=== PATIENT | female | born 1990 | race Caucasian/White ===

== ENCOUNTER 2017-02-07 23:07 | Emergency (ER) | payer MEDICAID, OTHER ==
[2017-02-07 23:19] VITALS: TEMP 97.9; BMI 31.8
--- NOTE | 2017-02-07 23:46 | ED PDOC ---
Arrival/HPI <Jacob Field - Last Filed: 02/08/17 01:11> - General Historian: Patient <Casey Reno - Last Filed: 02/08/17 02:10> - General Chief Complaint: Chest Pain Time Seen by Provider: 02/07/17 23:21 - History of Present Illness Narrative History of Present Illness (Text): 02/07/17 23:41 26 y/o female, pmh including asthma, chronic smoker, nkda, c/o rt. sided chest pain x 1 day with no fall or trauma. Pt. stated that she was at the gym today which she has been doing weight lifting, went home tonight and noticed to have the rt. anterior chest pain, aggravated by movement, been coughing for amado past 2 weeks as well, no numbness or tingling, no headache or night sweat, no rash, no dizziness, no change in vision, no other medical or psychological complaints. (Casey Reno) Past Medical History - Provider Review Nursing Documentation Reviewed: Yes - Past History Past History: No Previous - Tetanus Immunization Tetanus Immunization: Unknown - Pulmonary Hx Asthma: Yes - Psychiatric Hx Anxiety: Yes Hx Depression: No Hx Emotional Abuse: No Hx Physical Abuse: No Hx Substance Use: No - Past Surgical History Past Surgical History: No Previous - Suicidal Assessment Feels Threatened In Home Enviroment: No <Casey Reno - Last Filed: 02/08/17 02:10> Family/Social History - Physician Review Nursing Documentation Reviewed: Yes Family/Social History: Unknown Family HX Smoking Status: Light Smoker < 10 Cigarettes Daily Hx Alcohol Use: Yes Frequency of alcohol use: Socially Hx Substance Use: No Hx Substance Use Treatment: No <Casey Reno - Last Filed: 02/08/17 02:10> Allergies/Home Meds <Jacob Field - Last Filed: 02/08/17 01:11> <Casey Reno - Last Filed: 02/08/17 02:10> Allergies/Adverse Reactions: Allergies No Known Allergies Allergy (Verified 10/14/12 22:22) Review of Systems - Review of Systems Constitutional: absent: Fatigue, Fevers Eyes: absent: Vision Changes ENT: absent: Hearing Changes Respiratory: absent: SOB, Cough, Sputum Cardiovascular: Chest Pain. absent: Palpitations, Calf Pain Gastrointestinal: absent: Abdominal Pain, Nausea, Vomiting Musculoskeletal: Myalgias. absent: Arthralgias, Back Pain, Neck Pain, Joint Swelling Skin: absent: Rash, Pruritis, Skin Lesions, Laceration, Abscess, Ulcer, Cellulitis Neurological: absent: Headache, Dizziness, Focal Weakness, Gait Changes <Casey Reno - Last Filed: 02/08/17 02:10> Physical Exam Vital Signs Reviewed: Yes Temperature: Afebrile Blood Pressure: Normal Pulse: Regular Respiratory Rate: Normal Appearance: Positive for: Well-Appearing, Non-Toxic, Comfortable Pain Distress: Moderate Mental Status: Positive for: Alert and Oriented X 3 - Systems Exam Head: Present: Atraumatic, Normocephalic Pupils: Present: PERRL Extroacular Muscles: Present: EOMI Conjunctiva: Present: Normal Mouth: Present: Moist Mucous Membranes Neck: Present: Normal Range of Motion Respiratory/Chest: Present: Clear to Auscultation, Good Air Exchange, Tender to Palpation (+ttp on the rt. anterior pectoralis major muscle with the pain 100% reproducible, no rash. ). No: Respiratory Distress, Accessory Muscle Use, Wheezes, Decreased Breath Sounds, Rales, Retracting, Rhonchi, Tachypneic, Other Cardiovascular: Present: Regular Rate and Rhythm, Normal S1, S2. No: Murmurs Abdomen: Present: Normal Bowel Sounds. No: Tenderness, Distention, Peritoneal Signs, Rebound, Guarding Back: Present: Normal Inspection Upper Extremity: Present: Normal Inspection. No: Cyanosis, Edema Lower Extremity: Present: Normal Inspection. No: Edema Neurological: Present: GCS=15, Speech Normal, Motor Func Grossly Intact, Gait Normal, Memory Normal Skin: Present: Warm, Dry, Normal Color. No: Rashes Psychiatric: Present: Alert, Oriented x 3, Normal Insight, Normal Concentration <Casey Reno - Last Filed: 02/08/17 02:10> Vital Signs Temp Pulse Resp BP Pulse Ox 02/08/17 01:33 83 16 114/49 L 98 02/07/17 23:16 97.9 F 75 19 126/67 97 Medical Decision Making <Jacob Field - Last Filed: 02/08/17 01:11> - Lab Interpretations I have reviewed the lab results: Yes Interpretation: No clinic. lab abnormalty - EKG Interpretation Interpreted by ED Physician: Yes Type: 12 lead EKG Comparison: No previous EKG avail. <Casey Reno - Last Filed: 02/08/17 02:10> ED Course and Treatment: 02/07/17 23:49 -labs/thyroid panel -EKG -Chest x-ray -Toradol IM -observe and reassess 02/08/17 02:00 -EKG: NSR @ 62 BPM, no ST elevation or depression, T wave inversion noted on the lead III, no previous ekg available for comparison. -Chest x-ray show: rt. lower lobe infiltrate -Labs show no acute findings. -Thyroid profile within normal limit. -Levaquin 750mg po ordered. -I discussed the side effect of the fluoroquinolones with the patient including achilles tendon rupture which she is awared and agreed to take this medication. -Pt. is vitally stable, pain resolved with the IV toradol. -Discharge home with levaquin, promethazine dm, motrin, stay hydrated, bed rest , no gym or exercise for 7 days plus stay hydrated, stop smoking, follow up with your own pmd within 2 days, return to the ER for any new or worsening signs or symptoms. (Casey Reno) - Lab Interpretations Lab Results: 02/08/17 00:20 02/08/17 00:20 Lab Results 02/08/17 00:20: WBC 8.9, RBC 3.92, Hgb 12.2, Hct 35.7 L, MCV 91.1, MCH 31.1, MCHC 34.2, RDW 13.6, Plt Count 235, MPV 11.4 H, Gran % 57.3, Lymph % (Auto) 32.8 , [place] % (Auto) 8.9 H, Eos % (Auto) 0.8 L, Baso % (Auto) 0.2, Gran # 5.08, Lymph # 2.9, [place] # 0.8 H, Eos # 0.1, Baso # 0.02 02/08/17 00:20: Free T4 1.09, TSH 3rd Generation 3.91 02/08/17 00:20: Sodium 139, Potassium 3.9, Chloride 100, Carbon Dioxide 29, Anion Gap 14, BUN 18, Creatinine 0.6, Est GFR ( Amer) > 60, Est GFR (Non- Af Amer) > 60, Random Glucose 84, Calcium 9.4, Total Bilirubin 0.4, AST 28, ALT 48, Alkaline Phosphatase 67, Total Creatine Kinase 184, Total Protein 7.3, Albumin 4.1, Globulin 3.2, Albumin/Globulin Ratio 1.3 - RAD Interpretation Radiology Orders: 02/07/17 23:40 CHEST PORTABLE [RAD] Stat - EKG Interpretation EKG Interpretation (Text): 02/07/17 23:50 NSR @ 62 BPM, no ST elevation or depression, T wave inversion noted on the lead III, no previous ekg available for comparison. (Casey Reno) - Medication Orders Current Medication Orders: Discontinued Medications Ketorolac Tromethamine (Toradol) 60 mg IM STAT STA Stop: 02/07/17 23:41 Last Admin: 02/08/17 00:34 Dose: 30 mg Comments: 30 MG via IV as per PA. Steven Levofloxacin (Levaquin) 750 mg PO STAT STA Stop: 02/08/17 01:05 - PA / ETIQUETTE TEACHER / Resident Statement MAURICIO has reviewed & agrees with the documentation as recorded. MAURICIO has examined the patient and agrees with the treatment plan. <Jacob Field - Last Filed: 02/08/17 01:11> - PA / ETIQUETTE TEACHER / Resident Statement MAURICIO has reviewed & agrees with the documentation as recorded. MAURICIO has examined the patient and agrees with the treatment plan. <Casey Reno - Last Filed: 02/08/17 02:10> Disposition/Present on Arrival <Jacob Field - Last Filed: 02/08/17 01:11> - Present on Arrival Any Indicators Present on Arrival: No History of DVT/PE: No History of Uncontrolled Diabetes: No Urinary Catheter: No History of Decub. Ulcer: No History Surgical Site Infection Following: None - Disposition Have Diagnosis and Disposition been Completed?: Yes Disposition Time: 01:07 Patient Plan: Discharge <Casey Reno - Last Filed: 02/08/17 02:10> - Disposition Diagnosis: Pneumonia Disposition: HOME/ ROUTINE Patient Problems: Current Active Problems Problem Status Onset Pneumonia Acute Condition: IMPROVED Additional Instructions: Discharge home with levaquin, promethazine dm, motrin, stay hydrated, bed rest, no gym or exercise for 7 days plus stay hydrated, stop smoking, follow up with your own pmd within 2 days, return to the ER for any new or worsening signs or symptoms. Prescriptions: Ibuprofen [Motrin] 600 mg PO QID PRN #24 tab PRN Reason: Other levoFLOXacin [Levaquin] 750 mg PO DAILY #4 tab Promethazine DM [Phenergan DM Oral Syrup] 5 ml PO QID PRN #150 ml PRN Reason: Other Referrals: David Vaughan, [Primary Care Provider] - Follow up with primary [facility] at [facility] [place] [Outside] - Follow up with primary Forms: WORK NOTE
[2017-02-08 00:51] LABS: ADD MANUAL DIFF? NO
[2017-02-08 00:53] LABS: BASO # 0.02 K/mm3 (0.0-2.0); BASO % 0.2 % (0.0-3.0); EOS # 0.1 (0.0-0.7); EOS % 0.8 % (1.5-5.0); GRAN # 5.08 (1.4-6.5); GRAN % 57.3 % (50.0-68.0); HEMATOCRIT 35.7 % (36.0-48.0); LYMPH # 2.9 (1.2-3.4); LYMPH % 32.8 % (22.0-35.0); MEAN CELL VOLUME 91.1 fL (80.0-105.0); MEAN CORPUSCULAR HEMOGLOBIN 31.1 pg (25.0-35.0); MEAN CORPUSCULAR HGB CONC 34.2 g/dl (31.0-37.0); MEAN PLATELET VOLUME 11.4 fl (7.0-11.0); MONO # 0.8 (0.1-0.6); MONO % 8.9 % (1.0-6.0); PLATELET COUNT 235 10^3/uL (120.0-450.0); RED CELL DISTRIBUTION WIDTH 13.6 % (11.5-14.5); WHITE BLOOD COUNT 8.9 10^3/ul (4.5-11.0)
[2017-02-08 01:00] LABS: ALB/GLOB RATIO 1.3 (1.1-1.8); ALKALINE PHOSPHATASE 67 U/L (38-133); ALT/SGPT 48 U/L (7-56); AST/SGOT 28 U/L (15-39); BILIRUBIN,TOTAL 0.4 mg/dL (0.2-1.3); BLOOD UREA NITROGEN 18 mg/dL (7-21); CALCIUM 9.4 mg/dL (8.4-10.5); CARBON DIOXIDE 29 mmol/L (21-33); CHLORIDE 100 mmol/L (98-107); GFR AFRICAN-AMERICAN > 60; GLUCOSE,RANDOM 84 mg/dL (70-110); POTASSIUM 3.9 mmol/L (3.6-5.0); SODIUM 139 mmol/L (132-148); TOTAL PROTEIN 7.3 g/dL (5.8-8.3)
[2017-02-08] MEDS ORDERED: levoFLOXacin 750 MG TAB PO STA (01:04)
[2017-02-08 01:35] VITALS: BP 114/49; PULSE 83; RESP 16; O2SAT 98
[2017-02-08 01:49] LABS: FREE T4 1.09 ng/dL (0.78-2.19)
[2017-02-08 02:03] LABS: THYROID STIMULATING HORMONE 3.91 mIU/mL (0.46-4.68)
--- NOTE | 2017-02-08 08:01 | RAD ---
HISTORY: rt. sided chest pain COMPARISON: No prior. FINDINGS: LUNGS: There is no focal consolidation suggest pneumonia. PLEURA: No significant pleural effusion identified, no pneumothorax apparent. CARDIOVASCULAR: Normal. OSSEOUS STRUCTURES: No significant abnormalities. VISUALIZED UPPER ABDOMEN: Normal. OTHER FINDINGS: None. IMPRESSION: No active disease.
--- NOTE | 2017-02-08 12:16 | CARD ---
APPROVED REPORT EKG Measurement Heart [id number] <Conclusion> Normal sinus rhythm with sinus arrhythmia Incomplete right bundle branch block Borderline ECG
== END 2017-02-08 02:14 | disposition home or self-care (01) ==
LOC: ED 23:07
DX: J18.9 Pneumonia, unspecified organism (principal); F17.210 Nicotine dependence, cigarettes, uncomplicated
CPT/HCPCS: 71010; 80053; 82550; 84439; 84443; 85025; 93005; 96372; 99283; J1885